=== PATIENT | female | born 2000 | race Caucasian/White ===

== ENCOUNTER 2022-08-13 15:28 | Emergency (ER) | payer MEDICAID, SELFPAY ==
[2022-08-13 15:29] VITALS: BP 129/72; PULSE 92; RESP 18; TEMP 36.2; O2SAT 100; BMI 35.8
--- NOTE | 2022-08-13 15:35 | RAD_ITS ---
STUDY: X-RAY - RIGHT HAND REASON FOR EXAM: Female, 21 years old. RT index finger pain TECHNIQUE: 3 view(s) of the hand. COMPARISON: None. FINDINGS: Normal radiocarpal articulation. Normal distal radioulnar joint. Normal visualized carpal bones. Normal carpal articulations Normal carpometacarpal articulation of the thumb. Normal second through fifth carpometacarpal joints. Normal metacarpi. Normal metacarpophalangeal joint of the thumb. Normal interphalangeal joint of the thumb. Normal proximal and distal phalanges of the thumb. Normal metacarpophalangeal joints of the second through fifth fingers. Normal proximal and distal interphalangeal joints of the second through fifth fingers. Normal phalanges of the second through fifth fingers. The soft tissue structures are unremarkable. RAD/Hand Min 3 Views IMPRESSION: Normal x-ray examination of the hand. Electronically Signed: He Briseno MD at 16:42 EST ,
--- NOTE | 2022-08-13 18:26 | EX.ED.UPPERE ---
HPI History of Present Illness HPI Narrative: Presents with injury to her right index finger that occurred yesterday. Patient states she closed her index, middle, and ring fingers in the lid of a car trunk. Patient states her pain is sharp. Patient states it is worse with movement. Patient states it is better with rest. Patient denies any paresthesias or weakness. Patient denies any other injuries. Chief Complaint: Upper Extremity Injury Informant: patient Occured/Mechanism Mechanism/Context: Yes blunt trauma Onset/Context/Timing Onset: Yesterday Context: Sudden Onset Timing: Continuous Quality of Pain: Sharp Location: Right index finger Worsened by: Movement Relieved by: Rest Associated Symptoms Associated Symptoms: Negative for Parasthesia, Weakness or Loss of Funtion [facility] Medical History (Updated 08/13/22 @ 18:[address] Kris Camargo DO) Allergy/AdvReac Type Severity Reaction Status Date / Time No Known Allergies Allergy Verified 08/13/22 15:29 Social History Smoking Status: Never smoker ROS ROS ED Constitutional Constitutional ED: Denies chills or fever(s) Eyes Eyes: Denies blurry vision or change in vision ENT ENT ED: Denies rhinorrhea or sore throat Cardiovascular Cardiovascular: Denies chest pain or palpitations Respiratory/Chest Respiratory/Chest: Denies cough or dyspnea Gastrointestinal Gastrointestinal: Denies nausea or vomiting Genitourinary Genitourinary ED: Denies dysuria or hematuria Musculoskeletal Musculoskeletal: Denies back pain or neck pain Integumentary Denies abscess or rash Neurologic Neurologic: Denies headache(s) or weakness Allergic/Immunologic Allergic/Immunologic ED: Denies mouth swelling or urticaria EXAM Physical Exam Const Vital Signs: 08/13/22 15:29 Temperature 97.2 F L Temperature Source Temporal Pulse Rate 92 Respiratory Rate 18 Blood Pressure 129/72 H Blood Pressure Mean 91 Pulse Ox 100 Oxygen Delivery Method Room Air Positive well nourished and well developed General Appearance ED: well developed and NAD HEENT Reports moist mucous membranes Neck full ROM and supple Extremity Extremity Narrative: There is tenderness over the proximal phalanx of the right index finger. There is mild edema. There is no ecchymosis. There is no bony crepitance or step-off. There is no deformity noted. Range of motion was slightly limited in flexion and extension of the MP, PIP, and DIP joints of the right index finger. There is minimal tenderness over the right middle and ring fingers over the proximal phalanges. There is no deformity. There is no edema or ecchymosis. There is good range of motion of the MP, PIP, DIP joints of the middle and ring fingers. Sensation was intact to light touch in all digits. Capillary refill was less than 2 seconds in all digits. Neuro oriented x3, CN's II-XII intact bilaterally, moves all extremities, no focal motor deficits and no sensory deficits noted Sensorium / Orientation: alert Motor Exam: strength 5/5 throughout Psych mental status grossly normal MDM MDM MDM Narrative Medical decision making narrative: X-rays of the right hand were obtained. There are 3 views. On my interpretation, there is no acute fracture. There is no dislocation. Radiologist also interpreted the x-rays and agrees. Patient was advised of her findings. Patient was instructed to ice and elevate the right hand. Patient was instructed to follow-up with her primary care physician in 5 to 7 days. Patient was instructed to take Tylenol as needed for pain. Patient understood and was agreeable with the plan. All questions were answered. Radiography Diagnostic Testing: Clinical Impression(s) from Imaging Studies Hand X-Ray 08/13/22 15:35 IMPRESSION: Normal x-ray examination of the hand. Electronically Signed: He Briseno MD at 16:42 EST Reading Location ID and State: [address] [place] [address] , Service support , Discharge Plan Triage Chief Complaint: Upper Extremity Injury ED Provider: Kris Camargo Dx/Rx/DC Orders Clinical Impression: Contusion of right index finger without damage to nail, initial encounter, Contusion of right middle finger without damage to nail, initial encounter, Contusion of right ring finger without damage to nail, initial encounter Instructions: ED Finger Contusion Primary Care Provider: Care Physician,No Primary Referrals: Andrea Hogan MD [Med Staff - Active Staff] - 1-2 Weeks Care Physician,No Primary [Primary Care Provider] - Disposition Disposition: Home, Self Care
== END 2022-08-13 18:37 | disposition home or self-care (01) ==
PROVIDERS: Emergency Provider Emergency Medicine; Visit Provider Emergency Medicine
DX: S60.021A Contusion of right index finger without damage to nail, initial encounter (principal); S60.031A Contusion of right middle finger without damage to nail, initial encounter; S60.041A Contusion of right ring finger without damage to nail, initial encounter; W23.0XXA Caught, crushed, jammed, or pinched between moving objects, initial encounter
CPT/HCPCS: 73130; 99282